=== PATIENT | male | born 1980 | race Two or more races ===

== ENCOUNTER 2019-09-05 11:20 | Inpatient (IN) | payer MEDICAID, OTHER, SELFPAY ==
[~2019-09-05] VITALS: Ht 167.6 cm; Wt 83.2 kg
[2019-09-05] MEDS ORDERED: SODIUM CHLORIDE 0.9% 1,000 ML IV ONE (11:34)
[2019-09-05 12:05] LABS: Basophils # (auto) 0 10 ^3/uL (0-0.2); Basophils % (auto) 0.2 % (0.0-2.0); Eosinophils # (auto) 0 10 ^3/uL (0-0.8); Lymphocytes # (auto) 0.7 10 ^3/uL (0.4-5.4); Lymphocytes % (auto) 8.3 % (10.0-50.0); Mean Corpuscular Hemoglobin 28.2 pg (28.0-32.0); Mean Corpuscular Hgb Conc. 33.3 g/dL (32.0-36.0); Mean Corpuscular Volume 84.8 fL (80.0-100.0); Monocytes # (auto) 0.4 10 ^3/uL (0-1.3); Monocytes % (auto) 4.4 % (0.0-12.0); Neutrophils # (auto) 7.3 10 ^3/uL (1.6-8.6); Neutrophils % (auto) 87.1 % (37.0-80.0); Platelet Count (auto) 219 10^3/uL (140-450); Red Blood Cells 4.25 10^6/uL (4.5-5.90); White Blood Cell 8.4 10^3/uL (4.4-10.8)
[2019-09-05 12:22] LABS: Alanine Aminotransferase 28 U/L (16-61); Albumin 2.1 g/dL (3.4-5.0); Anion Gap 10 (5-15); Calcium 7.1 mg/dL (8.5-10.1); Carbon Dioxide 19 mmol/L (21-32); Chloride 108 mmol/L (98-107); Magnesium 2.3 mg/dL (1.6-2.6); Potassium 3.8 mmol/L (3.5-5.1); Sodium 137 mmol/L (136-145)
[2019-09-05 12:28] LABS: Alkaline Phosphatase 204 U/L (45-117); Aspartate Aminotransferase 27 U/L (15-37); Bilirubin, Total 0.5 mg/dL (0.2-1.0); GFR African American 47 mL/min; GFR Non-African American 39 mL/min; Total Protein 6.4 g/dL (6.4-8.2)
[2019-09-05 12:30] LABS: Glucose 413 mg/dL (74-106)
[2019-09-05 12:32] LABS: Urine Bacteria FEW /hpf (None Seen); Urine Blood TRACE /uL (Negative); Urine Specific Gravity 1.016 (1.001-1.035); Urine WBC 3 /hpf (0 - 3)
[2019-09-05 13:18] LABS: BUN/Creatinine Ratio 8.5; Blood Urea Nitrogen 17 mg/dL (7-18)
[2019-09-05] MEDS ORDERED: ACETAMINOPHEN 500 MG TAB PO ONE (14:45)
[2019-09-05] MEDS ORDERED: AZITHROMYCIN 500MG/ 250ML 250 ML IV ONE (15:15)
[2019-09-05] MEDS ORDERED: cefTRIAXone 1GM/50ML D5W 50 ML IV ONE (15:15)
[2019-09-05] MEDS ORDERED: ACETAMINOPHEN 500 MG TAB PO PRN ×2 (17:45)
[2019-09-05] MEDS ORDERED: NITROGLYCERIN 0.4 MG SL TAB SL PRN (17:45)
[2019-09-05] MEDS ORDERED: MORPHINE SULF INJ 2 MG/ML SYRINGE 1ML IV PRN ×2 (17:45)
[2019-09-05] MEDS ORDERED: HYDROcodone-ACET 5/325MG TAB PO PRN (17:45)
[2019-09-05] MEDS ORDERED: DEXTROSE (50%) 50ML SYRG IV PRN (17:45)
[2019-09-05] MEDS ORDERED: ONDANSETRON HCL 4 MG/2 ML VIAL IV PRN (17:45)
[2019-09-05] MEDS ORDERED: FUROSEMIDE 40 MG/4 ML VIAL IV ONE (17:45)
[2019-09-05 19:14] VITALS: BP 156/85
[2019-09-05 20:15] VITALS: BP 159/91
[2019-09-05] MEDS ORDERED: ALBUTEROL SULFATE 90 MCG MDI IN ONE (21:23)
[2019-09-05] MEDS: ALBUTEROL SULF HFA 90MCG INH 200DOSE IN SCH (21:58)
[2019-09-05] MEDS: ACCU-CHEK COMFORT CURVE STRIP VI SCH (22:22)
[2019-09-05] MEDS: methylPREDNISolone SOD SUCC 40 MG/ML VL IV SCH (22:22)
[2019-09-05] MEDS: InsuLIN REG 1unit/0.01ml Soln (100units/ml) SC SCH (22:29)
[2019-09-06] VITALS: BP 143/80
[2019-09-06 04:00] VITALS: BP 143/82
[2019-09-06] MEDS: ACCU-CHEK COMFORT CURVE STRIP VI SCH ×5 (06:03→20:02)
[2019-09-06] MEDS: InsuLIN REG 1unit/0.01ml Soln (100units/ml) SC SCH ×2 (06:19→20:25)
[2019-09-06] MEDS: ALBUTEROL SULF HFA 90MCG INH 200DOSE IN SCH ×3 (06:25→21:31)
[2019-09-06] MEDS ORDERED: DEXTROSE (50%) 50ML SYRG IV PRN ×2 (08:45→12:15)
[2019-09-06] MEDS: FAMOTIDINE 20 MG TAB PO SCH (08:49)
[2019-09-06] MEDS: CHOLECALCIFEROL (VITD3) 1,000IU=25mCg TAB PO SCH (08:50)
[2019-09-06 09:00] VITALS: BP 151/84
[2019-09-06] MEDS: amLODIPine BESYLATE 5 MG TAB PO SCH (09:00)
[2019-09-06] MEDS: ZINC SULFATE 220mg CAP or TAB PO SCH (09:01)
[2019-09-06] MEDS: ASCORBIC ACID 1,000 MG TAB PO SCH (09:02)
[2019-09-06] MEDS: ENOXAPARIN SOD 40 MG/0.4 ML SYRINGE SC SCH (09:02)
[2019-09-06] MEDS: methylPREDNISolone SOD SUCC 40 MG/ML VL IV SCH ×2 (09:03→21:47)
[2019-09-06] MEDS: DOXYCYCLINE 100MG/250ML 250 ML IV SCH ×2 (09:54→20:11)
[2019-09-06] MEDS ORDERED: FUROSEMIDE 40 MG/4 ML VIAL IV SCH (10:00)
[2019-09-06] MEDS ORDERED: InsuLIN REG 1unit/0.01ml Soln (100units/ml) SC SCH ×2 (12:00→16:00)
[2019-09-06] MEDS ORDERED: InsuLIN REG 1unit/0.01ml Soln (100units/ml) IV ONE (12:15)
[2019-09-06 13:00] VITALS: BP 144/77
[2019-09-06] MEDS ORDERED: ACCU-CHEK COMFORT CURVE STRIP VI SCH (16:00)
[2019-09-06] MEDS ORDERED: INSULIN LANTUS (GLARGINE) 1 /0.01ml (100units/ml) SC ONE (16:30)
[2019-09-06 17:00] VITALS: BP 137/63
[2019-09-06 20:00] VITALS: BP 146/87
[2019-09-06] MEDS ORDERED: SODIUM CHLORIDE 0.9% 1,000 ML IV SCH (20:45)
[2019-09-07] VITALS (22 sets, daily range): BP systolic 117–157; BP diastolic 66–89
[2019-09-07] MEDS: ACCU-CHEK COMFORT CURVE STRIP VI SCH ×7 (00:11→23:50)
[2019-09-07] MEDS: InsuLIN REG 1unit/0.01ml Soln (100units/ml) SC SCH ×7 (00:15→23:22)
[2019-09-07 05:16] LABS: Basophils # (auto) 0 10 ^3/uL (0-0.2); Eosinophils # (auto) 0 10 ^3/uL (0-0.8); Hematocrit 40.1 % (41.0-53.0); Hemoglobin 13.6 g/dL (13.5-17.5); Lymphocytes # (auto) 0.9 10 ^3/uL (0.4-5.4); Lymphocytes % (auto) 6.4 % (10.0-50.0); Mean Corpuscular Hemoglobin 28.5 pg (28.0-32.0); Mean Corpuscular Hgb Conc. 33.8 g/dL (32.0-36.0); Mean Corpuscular Volume 84.3 fL (80.0-100.0); Monocytes # (auto) 0.7 10 ^3/uL (0-1.3); Monocytes % (auto) 4.8 % (0.0-12.0); Neutrophils # (auto) 13.1 10 ^3/uL (1.6-8.6); Neutrophils % (auto) 88.8 % (37.0-80.0); Nucleated Red Blood Cells % 0.1 %; Platelet Count (auto) 302 10^3/uL (140-450); Red Blood Cells 4.75 10^6/uL (4.5-5.90); Red Cell Distribution Width 15.1 % (11.8-14.3); White Blood Cell 14.8 10^3/uL (4.4-10.8)
[2019-09-07 05:33] LABS: BUN/Creatinine Ratio 18.6; Calcium 7.2 mg/dL (8.5-10.1)
[2019-09-07] MEDS: ALBUTEROL SULF HFA 90MCG INH 200DOSE IN SCH ×3 (06:00→22:57)
[2019-09-07] MEDS: DOXYCYCLINE 100MG/250ML 250 ML IV SCH (08:45)
[2019-09-07] MEDS ORDERED: INSULIN LANTUS (GLARGINE) 1 /0.01ml (100units/ml) SC SCH (10:00)
[2019-09-07] MEDS: methylPREDNISolone SOD SUCC 40 MG/ML VL IV SCH (10:07)
[2019-09-07] MEDS: FAMOTIDINE 20 MG TAB PO SCH (10:08)
[2019-09-07] MEDS: ASCORBIC ACID 1,000 MG TAB PO SCH (10:08)
[2019-09-07] MEDS: amLODIPine BESYLATE 5 MG TAB PO SCH (10:08)
[2019-09-07] MEDS: ZINC SULFATE 220mg CAP or TAB PO SCH (10:08)
[2019-09-07] MEDS: ENOXAPARIN SOD 40 MG/0.4 ML SYRINGE SC SCH (10:09)
[2019-09-07] MEDS: CHOLECALCIFEROL (VITD3) 1,000IU=25mCg TAB PO SCH (10:09)
[2019-09-07] MEDS ORDERED: ACTEMRA IV SCH (11:15)
[2019-09-07] MEDS ORDERED: ENOXAPARIN SOD 80 MG/0.8ML SYRINGE SC SCH (11:45)
[2019-09-07] MEDS: PIPERACILLIN-TAZOB 2.25GM 50 ML IV SCH ×3 (12:00→23:50)
[2019-09-07] MEDS ORDERED: methylPREDNISolone SOD SUCC 40 MG/ML VL IV ONE (12:00)
[2019-09-07] MEDS ORDERED: ACETAMINOPHEN 650 mg PER 20 mL UD PO ONE (12:00)
[2019-09-07] MEDS ORDERED: diphenhdrAMINE HCL 50 MG/1 ML VL IV ONE (12:00)
[2019-09-07] MEDS ORDERED: TOCILIZUMAB 400 MG in SODIUM CHL 0.9% 80 ML IV SCH (12:30)
[2019-09-07] MEDS ORDERED: TOCILIZUMAB 400 MG in SODIUM CHL 0.9% 80 ML IV ONE (13:15)
[2019-09-07] MEDS ORDERED: diphenhdrAMINE HCL 50 MG/1 ML VL ONE (13:23)
[2019-09-07 14:40] LABS: Alanine Aminotransferase 32 U/L (16-61); Aspartate Aminotransferase 30 U/L (15-37)
[2019-09-07 14:43] LABS: Alkaline Phosphatase 189 U/L (45-117)
[2019-09-07] MEDS ORDERED: DEXTROSE (50%) 50ML SYRG IV PRN (16:00)
[2019-09-07] MEDS ORDERED: REMDESIVIR 200 MG IV ONE (16:00)
[2019-09-07] MEDS ORDERED: SODIUM CHLORIDE IV ONE (16:00)
[2019-09-07] MEDS: SODIUM CHLORIDE 0.9% 1,000 ML IV SCH (17:47)
[2019-09-08] VITALS (77 sets, daily range): BP systolic 100–143; BP diastolic 65–92
[2019-09-08] MEDS ORDERED: guaiFENesin 200 MG/10 ML UD PO PRN (02:00)
[2019-09-08] MEDS: ACCU-CHEK COMFORT CURVE STRIP VI SCH ×6 (03:33→23:59)
[2019-09-08] MEDS: InsuLIN REG 1unit/0.01ml Soln (100units/ml) SC SCH ×6 (03:33→23:59)
[2019-09-08 04:22] LABS: Basophils # (auto) 0 10 ^3/uL (0-0.2); Basophils % (auto) 0.1 % (0.0-2.0); Eosinophils # (auto) 0 10 ^3/uL (0-0.8); Hematocrit 39.1 % (41.0-53.0); Hemoglobin 12.8 g/dL (13.5-17.5); Lymphocytes % (auto) 6.7 % (10.0-50.0); Mean Corpuscular Hemoglobin 27.7 pg (28.0-32.0); Mean Corpuscular Hgb Conc. 32.9 g/dL (32.0-36.0); Mean Corpuscular Volume 84.4 fL (80.0-100.0); Monocytes % (auto) 6.6 % (0.0-12.0); Neutrophils # (auto) 12.7 10 ^3/uL (1.6-8.6); Neutrophils % (auto) 86.6 % (37.0-80.0); Nucleated Red Blood Cells % 0.1 %; Platelet Count (auto) 353 10^3/uL (140-450); Red Blood Cells 4.63 10^6/uL (4.5-5.90); Red Cell Distribution Width 15.5 % (11.8-14.3); White Blood Cell 14.7 10^3/uL (4.4-10.8)
[2019-09-08 05:02] LABS: Potassium 3.8 mmol/L (3.5-5.1)
[2019-09-08 05:18] LABS: Albumin 1.7 g/dL (3.4-5.0); BUN/Creatinine Ratio 22.5; Bilirubin, Total 0.3 mg/dL (0.2-1.0); Calcium 6.9 mg/dL (8.5-10.1)
[2019-09-08] MEDS: PIPERACILLIN-TAZOB 2.25GM 50 ML IV SCH ×4 (05:34→19:36)
[2019-09-08] MEDS: ALBUTEROL SULF HFA 90MCG INH 200DOSE IN SCH ×3 (07:16→23:01)
[2019-09-08] MEDS ORDERED: diphenhdrAMINE HCL 50 MG/1 ML VL IV ONE (07:30)
[2019-09-08] MEDS ORDERED: ACETAMINOPHEN 650 mg PER 20 mL UD PO ONE (07:30)
[2019-09-08] MEDS ORDERED: methylPREDNISolone SOD SUCC 40 MG/ML VL IV ONE (07:30)
[2019-09-08] MEDS ORDERED: TOCILIZUMAB 400 MG in SODIUM CHL 0.9% 80 ML IV ONE (07:45)
[2019-09-08] MEDS: amLODIPine BESYLATE 5 MG TAB PO SCH (09:49)
[2019-09-08] MEDS: FAMOTIDINE 20 MG TAB PO SCH (09:50)
[2019-09-08] MEDS: ENOXAPARIN SOD 80 MG/0.8ML SYRINGE SC SCH (09:53)
[2019-09-08] MEDS ORDERED: INSULIN LANTUS (GLARGINE) 1 /0.01ml (100units/ml) SC SCH (10:00)
[2019-09-08] MEDS: SODIUM CHLORIDE 0.9% 1,000 ML IV SCH (11:00)
[2019-09-08] MEDS ORDERED: ASCORBIC ACID 500 MG TAB PO ONE (12:15)
[2019-09-08] MEDS ORDERED: ZINC SULFATE 220mg CAP or TAB PO ONE (12:15)
[2019-09-08] MEDS ORDERED: CHOLECALCIFEROL (VITD3) 1,000IU=25mCg TAB PO ONE (12:15)
[2019-09-08] MEDS: REMDESIVIR 100mg in NS 230ml DAILYx4DAYS (NO VENT) IV SCH (15:11)
[2019-09-08] MEDS: INSULIN LANTUS (GLARGINE) 1 /0.01ml (100units/ml) SC SCH (22:05)
[2019-09-09] VITALS (94 sets, daily range): BP systolic 127–160; BP diastolic 74–105
[2019-09-09] MEDS: InsuLIN REG 1unit/0.01ml Soln (100units/ml) SC SCH ×5 (03:53→23:51)
[2019-09-09] MEDS: ACCU-CHEK COMFORT CURVE STRIP VI SCH ×5 (03:56→23:48)
[2019-09-09 04:35] LABS: Basophils # (auto) 0 10 ^3/uL (0-0.2); Basophils % (auto) 0.1 % (0.0-2.0); Eosinophils # (auto) 0 10 ^3/uL (0-0.8); Hematocrit 40.9 % (41.0-53.0); Hemoglobin 13.4 g/dL (13.5-17.5); Lymphocytes # (auto) 1.5 10 ^3/uL (0.4-5.4); Lymphocytes % (auto) 11.7 % (10.0-50.0); Mean Corpuscular Hemoglobin 27.8 pg (28.0-32.0); Mean Corpuscular Hgb Conc. 32.9 g/dL (32.0-36.0); Mean Corpuscular Volume 84.7 fL (80.0-100.0); Monocytes # (auto) 1.4 10 ^3/uL (0-1.3); Monocytes % (auto) 10.6 % (0.0-12.0); Neutrophils # (auto) 10.2 10 ^3/uL (1.6-8.6); Neutrophils % (auto) 77.6 % (37.0-80.0); Nucleated Red Blood Cells % 0.1 %; Platelet Count (auto) 347 10^3/uL (140-450); Red Blood Cells 4.83 10^6/uL (4.5-5.90); Red Cell Distribution Width 14.8 % (11.8-14.3); White Blood Cell 13.2 10^3/uL (4.4-10.8)
[2019-09-09 04:51] LABS: Potassium 3.9 mmol/L (3.5-5.1)
[2019-09-09 04:54] LABS: BUN/Creatinine Ratio 24.6
[2019-09-09] MEDS: PIPERACILLIN-TAZOB 2.25GM 50 ML IV SCH ×4 (05:57→23:48)
[2019-09-09] MEDS: ALBUTEROL SULF HFA 90MCG INH 200DOSE IN SCH ×3 (06:00→22:00)
[2019-09-09] MEDS: SODIUM CHLORIDE 0.9% 1,000 ML IV SCH (06:38)
[2019-09-09] MEDS: CHOLECALCIFEROL (VITD3) 1,000IU=25mCg TAB PO SCH (10:00)
[2019-09-09] MEDS: ZINC SULFATE 220mg CAP or TAB PO SCH (10:00)
[2019-09-09] MEDS: amLODIPine BESYLATE 5 MG TAB PO SCH (10:00)
[2019-09-09] MEDS: ASCORBIC ACID 500 MG TAB PO SCH (10:00)
[2019-09-09] MEDS: ENOXAPARIN SOD 80 MG/0.8ML SYRINGE SC SCH (11:38)
[2019-09-09] MEDS ORDERED: FUROSEMIDE 40 MG/4 ML VIAL IV ONE (11:45)
[2019-09-09] MEDS: INSULIN LANTUS (GLARGINE) 1 /0.01ml (100units/ml) SC SCH ×2 (12:29→21:23)
[2019-09-09] MEDS ORDERED: METOCLOPRAMIDE HCL 5MG/ml INJ 2ml VIAL IV ONE (13:30)
[2019-09-09] MEDS: REMDESIVIR 100mg in NS 230ml DAILYx4DAYS (NO VENT) IV SCH ×2 (14:30→16:44)
[2019-09-09] MEDS ORDERED: PANTOPRAZOLE 40 MG TAB PO ONE (14:45)
[2019-09-09] MEDS ORDERED: DEXTROSE (50%) 50ML SYRG IV PRN (14:45)
[2019-09-09] MEDS ORDERED: ONDANSETRON HCL 4 MG/2 ML VIAL ONE (23:42)
[2019-09-10] VITALS (40 sets, daily range): BP systolic 125–161; BP diastolic 76–102
[2019-09-10 04:02] LABS: Hematocrit 46.6 % (41.0-53.0); Hemoglobin 15.3 g/dL (13.5-17.5); Mean Corpuscular Hgb Conc. 32.9 g/dL (32.0-36.0); Mean Corpuscular Volume 84.9 fL (80.0-100.0); Platelet Count (auto) 360 10^3/uL (140-450); Red Blood Cells 5.49 10^6/uL (4.5-5.90); White Blood Cell 6.9 10^3/uL (4.4-10.8)
[2019-09-10 04:17] LABS: Band Neutrophils % (manual) 0; Basophils % (manual) 0 (0.0-2.0); Blast Cells 0; Metamyelocytes % 0; Myelocytes % 0; Promyelocytes % 0; Reactive Lymphocytes 0
[2019-09-10 04:30] LABS: BUN/Creatinine Ratio 20.3; Calcium 7.1 mg/dL (8.5-10.1); Potassium 3.8 mmol/L (3.5-5.1)
[2019-09-10] MEDS: PIPERACILLIN-TAZOB 2.25GM 50 ML IV SCH ×3 (05:31→18:42)
[2019-09-10] MEDS: ACCU-CHEK COMFORT CURVE STRIP VI SCH ×4 (05:31→23:25)
[2019-09-10] MEDS: InsuLIN REG 1unit/0.01ml Soln (100units/ml) SC SCH ×4 (05:32→23:24)
[2019-09-10] MEDS: ALBUTEROL SULF HFA 90MCG INH 200DOSE IN SCH ×3 (06:15→22:00)
[2019-09-10 06:47] LABS: Eosinophils % (manual) 1 (0-7); Lymphocytes % (manual) 27 (10.0-50.0); Monocytes % (manual) 9 (0-12)
[2019-09-10] MEDS: amLODIPine BESYLATE 5 MG TAB PO SCH (09:42)
[2019-09-10] MEDS: PANTOPRAZOLE 40 MG TAB PO SCH (09:42)
[2019-09-10] MEDS: INSULIN LANTUS (GLARGINE) 1 /0.01ml (100units/ml) SC SCH ×2 (09:42→21:50)
[2019-09-10] MEDS: CHOLECALCIFEROL (VITD3) 1,000IU=25mCg TAB PO SCH (09:42)
[2019-09-10] MEDS: ENOXAPARIN SOD 80 MG/0.8ML SYRINGE SC SCH (09:42)
[2019-09-10] MEDS: ZINC SULFATE 220mg CAP or TAB PO SCH (09:42)
[2019-09-10] MEDS: ASCORBIC ACID 500 MG TAB PO SCH (09:42)
[2019-09-10] MEDS: REMDESIVIR 100mg in NS 230ml DAILYx4DAYS (NO VENT) IV SCH (14:06)
[2019-09-10] MEDS: hydrALAZINE HCL 20 MG/ML VL IV PRN (18:46)
[2019-09-10] MEDS: methylPREDNISolone SOD SUCC 40 MG/ML VL IV SCH (21:49)
[2019-09-11] VITALS (7 sets, daily range): BP systolic 128–162; BP diastolic 82–102
[2019-09-11 04:16] LABS: Potassium 4.1 mmol/L (3.5-5.1)
[2019-09-11] MEDS: InsuLIN REG 1unit/0.01ml Soln (100units/ml) SC SCH ×3 (05:03→17:40)
[2019-09-11] MEDS: ACCU-CHEK COMFORT CURVE STRIP VI SCH ×3 (05:05→17:21)
[2019-09-11] MEDS: PIPERACILLIN-TAZOB 2.25GM 50 ML IV SCH ×4 (06:00→17:21)
[2019-09-11] MEDS: ALBUTEROL SULF HFA 90MCG INH 200DOSE IN SCH ×3 (07:30→22:24)
[2019-09-11] MEDS: CHOLECALCIFEROL (VITD3) 1,000IU=25mCg TAB PO SCH (08:41)
[2019-09-11] MEDS: ASCORBIC ACID 500 MG TAB PO SCH (08:42)
[2019-09-11] MEDS: ENOXAPARIN SOD 80 MG/0.8ML SYRINGE SC SCH (08:42)
[2019-09-11] MEDS: amLODIPine BESYLATE 5 MG TAB PO SCH (08:43)
[2019-09-11] MEDS: methylPREDNISolone SOD SUCC 40 MG/ML VL IV SCH (08:43)
[2019-09-11] MEDS: PANTOPRAZOLE 40 MG TAB PO SCH (08:43)
[2019-09-11] MEDS: ZINC SULFATE 220mg CAP or TAB PO SCH (08:43)
[2019-09-11] MEDS: INSULIN LANTUS (GLARGINE) 1 /0.01ml (100units/ml) SC SCH ×2 (10:49→22:00)
[2019-09-11] MEDS: PROMETHAZINE HCL 25 MG/ML 1ML IV PRN (11:50)
[2019-09-11] MEDS: hydrALAZINE HCL 20 MG/ML VL IV PRN (11:50)
[2019-09-11] MEDS: REMDESIVIR 100mg in NS 230ml DAILYx4DAYS (NO VENT) IV SCH (14:13)
[2019-09-11] MEDS ORDERED: FUROSEMIDE 20 MG/2 ML VIAL IV ONE (14:15)
[2019-09-11] MEDS ORDERED: DOCUSATE SOD 100 MG CAP PO ONE ×2 (14:15→14:19)
[2019-09-11] MEDS ORDERED: FUROSEMIDE 20 MG/2 ML VIAL ONE (14:19)
[2019-09-11] MEDS: DOCUSATE SOD 100 MG CAP PO SCH (22:00)
[2019-09-12] MEDS: PIPERACILLIN-TAZOB 2.25GM 50 ML IV SCH ×2 (00:24→05:47)
[2019-09-12] MEDS: InsuLIN REG 1unit/0.01ml Soln (100units/ml) SC SCH ×5 (00:25→23:45)
[2019-09-12] MEDS: ACCU-CHEK COMFORT CURVE STRIP VI SCH ×5 (00:25→23:46)
[2019-09-12 02:05] VITALS: BP 143/85
[2019-09-12 04:00] VITALS: BP 136/87
[2019-09-12 04:38] LABS: Basophils # (auto) 0 10 ^3/uL (0-0.2); Basophils % (auto) 0.1 % (0.0-2.0); Eosinophils # (auto) 0.2 10 ^3/uL (0-0.8); Eosinophils % (auto) 2.9 % (0.0-7.0); Hematocrit 44.8 % (41.0-53.0); Lymphocytes # (auto) 1.6 10 ^3/uL (0.4-5.4); Lymphocytes % (auto) 25.5 % (10.0-50.0); Mean Corpuscular Hemoglobin 28.2 pg (28.0-32.0); Mean Corpuscular Hgb Conc. 33.6 g/dL (32.0-36.0); Monocytes # (auto) 0.6 10 ^3/uL (0-1.3); Monocytes % (auto) 10.1 % (0.0-12.0); Neutrophils # (auto) 3.9 10 ^3/uL (1.6-8.6); Neutrophils % (auto) 61.4 % (37.0-80.0); Nucleated Red Blood Cells % 0.2 %; Platelet Count (auto) 375 10^3/uL (140-450); Red Blood Cells 5.33 10^6/uL (4.5-5.90); Red Cell Distribution Width 14.6 % (11.8-14.3); White Blood Cell 6.4 10^3/uL (4.4-10.8)
[2019-09-12 05:00] LABS: Calcium 7.2 mg/dL (8.5-10.1); Potassium 3.4 mmol/L (3.5-5.1)
[2019-09-12 05:02] LABS: BUN/Creatinine Ratio 23.9
[2019-09-12] MEDS: ALBUTEROL SULF HFA 90MCG INH 200DOSE IN SCH ×3 (07:53→21:29)
[2019-09-12 08:00] VITALS: BP 141/75
[2019-09-12] MEDS: DOCUSATE SOD 100 MG CAP PO SCH ×2 (10:49→21:29)
[2019-09-12] MEDS: predniSONE 20 MG TAB PO SCH (10:49)
[2019-09-12] MEDS: ZINC SULFATE 220mg CAP or TAB PO SCH (10:49)
[2019-09-12] MEDS: amLODIPine BESYLATE 5 MG TAB PO SCH (10:49)
[2019-09-12] MEDS: INSULIN LANTUS (GLARGINE) 1 /0.01ml (100units/ml) SC SCH ×2 (10:50→21:30)
[2019-09-12] MEDS: CHOLECALCIFEROL (VITD3) 1,000IU=25mCg TAB PO SCH (10:50)
[2019-09-12] MEDS: ASCORBIC ACID 500 MG TAB PO SCH (10:50)
[2019-09-12] MEDS: PANTOPRAZOLE 40 MG TAB PO SCH (10:50)
[2019-09-12] MEDS: ENOXAPARIN SOD 80 MG/0.8ML SYRINGE SC SCH (10:50)
[2019-09-12 12:00] VITALS: BP 133/89
[2019-09-12] MEDS: PIPERACILLIN-TAZOB 3.375GM 100 ML IV SCH ×3 (14:30→23:30)
[2019-09-12 21:40] VITALS: BP 143/88
[2019-09-13] VITALS (7 sets, daily range): BP systolic 123–146; BP diastolic 87–101
[2019-09-13] MEDS: ALBUTEROL SULF HFA 90MCG INH 200DOSE IN SCH ×3 (05:46→21:32)
[2019-09-13] MEDS: FUROSEMIDE 20 MG/2 ML VIAL IV SCH ×2 (05:46→18:11)
[2019-09-13] MEDS: PIPERACILLIN-TAZOB 3.375GM 100 ML IV SCH ×4 (05:47→23:33)
[2019-09-13] MEDS: InsuLIN REG 1unit/0.01ml Soln (100units/ml) SC SCH ×4 (05:47→23:34)
[2019-09-13] MEDS: ACCU-CHEK COMFORT CURVE STRIP VI SCH ×4 (05:47→23:34)
[2019-09-13 06:06] LABS: Urine Bacteria FEW /hpf (None Seen); Urine Blood TRACE /uL (Negative); Urine Specific Gravity 1.021 (1.001-1.035); Urine WBC 2 /hpf (0 - 3)
[2019-09-13 09:49] LABS: Basophils # (auto) 0 10 ^3/uL (0-0.2); Basophils % (auto) 0.5 % (0.0-2.0); Eosinophils # (auto) 0.4 10 ^3/uL (0-0.8); Eosinophils % (auto) 6.8 % (0.0-7.0); Hematocrit 48.6 % (41.0-53.0); Lymphocytes # (auto) 1.3 10 ^3/uL (0.4-5.4); Mean Corpuscular Volume 84.9 fL (80.0-100.0); Monocytes # (auto) 0.6 10 ^3/uL (0-1.3); Monocytes % (auto) 10.2 % (0.0-12.0); Neutrophils # (auto) 3.5 10 ^3/uL (1.6-8.6); Neutrophils % (auto) 60.5 % (37.0-80.0); Platelet Count (auto) 373 10^3/uL (140-450); Red Blood Cells 5.73 10^6/uL (4.5-5.90); Red Cell Distribution Width 14.7 % (11.8-14.3); White Blood Cell 5.8 10^3/uL (4.4-10.8)
[2019-09-13 10:07] LABS: Albumin 2.3 g/dL (3.4-5.0); Calcium 7.6 mg/dL (8.5-10.1); Magnesium 2.2 mg/dL (1.6-2.6); Potassium 3.4 mmol/L (3.5-5.1)
[2019-09-13 10:13] LABS: BUN/Creatinine Ratio 17.4; Bilirubin, Total 0.9 mg/dL (0.2-1.0); CRP High Sensitivity 0.17 mg/dL (< 0.3)
[2019-09-13] MEDS: ZINC SULFATE 220mg CAP or TAB PO SCH (10:48)
[2019-09-13] MEDS: POTASSIUM CHL 20 Meq TABLET PO SCH (10:48)
[2019-09-13] MEDS: predniSONE 20 MG TAB PO SCH (10:48)
[2019-09-13] MEDS: DOCUSATE SOD 100 MG CAP PO SCH ×2 (10:48→21:33)
[2019-09-13] MEDS: amLODIPine BESYLATE 5 MG TAB PO SCH (10:49)
[2019-09-13] MEDS: ASCORBIC ACID 500 MG TAB PO SCH (10:49)
[2019-09-13] MEDS: PANTOPRAZOLE 40 MG TAB PO SCH (10:49)
[2019-09-13] MEDS: CHOLECALCIFEROL (VITD3) 1,000IU=25mCg TAB PO SCH (10:50)
[2019-09-13] MEDS: ENOXAPARIN SOD 80 MG/0.8ML SYRINGE SC SCH (10:50)
[2019-09-13] MEDS: PROMETHAZINE HCL 25 MG/ML 1ML IV PRN (10:55)
[2019-09-13] MEDS: INSULIN LANTUS (GLARGINE) 1 /0.01ml (100units/ml) SC SCH ×2 (10:58→21:53)
[2019-09-14 04:00] VITALS: BP 122/84
[2019-09-14 04:27] LABS: Basophils # (auto) 0 10 ^3/uL (0-0.2); Basophils % (auto) 0.5 % (0.0-2.0); Eosinophils # (auto) 0.3 10 ^3/uL (0-0.8); Eosinophils % (auto) 6.6 % (0.0-7.0); Hematocrit 43.1 % (41.0-53.0); Hemoglobin 14.6 g/dL (13.5-17.5); Lymphocytes # (auto) 1.6 10 ^3/uL (0.4-5.4); Lymphocytes % (auto) 31.8 % (10.0-50.0); Mean Corpuscular Hemoglobin 28.4 pg (28.0-32.0); Mean Corpuscular Hgb Conc. 33.9 g/dL (32.0-36.0); Mean Corpuscular Volume 83.9 fL (80.0-100.0); Monocytes # (auto) 0.7 10 ^3/uL (0-1.3); Monocytes % (auto) 14.3 % (0.0-12.0); Neutrophils # (auto) 2.3 10 ^3/uL (1.6-8.6); Neutrophils % (auto) 46.8 % (37.0-80.0); Nucleated Red Blood Cells % 0.1 %; Platelet Count (auto) 326 10^3/uL (140-450); Red Blood Cells 5.14 10^6/uL (4.5-5.90); Red Cell Distribution Width 14.8 % (11.8-14.3)
[2019-09-14 04:48] LABS: Albumin 2.2 g/dL (3.4-5.0); Calcium 7.3 mg/dL (8.5-10.1); Magnesium 2.4 mg/dL (1.6-2.6); Potassium 3.1 mmol/L (3.5-5.1)
[2019-09-14 04:53] LABS: BUN/Creatinine Ratio 16.7; Bilirubin, Total 0.8 mg/dL (0.2-1.0); Total Protein 5.6 g/dL (6.4-8.2)
[2019-09-14 04:56] LABS: INR 1.12 (0.9-1.15); Partial Thromboplastin Time 28.8 sec (23.64-32.05)
[2019-09-14] MEDS: ALBUTEROL SULF HFA 90MCG INH 200DOSE IN SCH ×3 (05:27→21:35)
[2019-09-14] MEDS: ACCU-CHEK COMFORT CURVE STRIP VI SCH ×3 (05:29→18:37)
[2019-09-14] MEDS: PIPERACILLIN-TAZOB 3.375GM 100 ML IV SCH ×2 (05:29→12:28)
[2019-09-14] MEDS: InsuLIN REG 1unit/0.01ml Soln (100units/ml) SC SCH ×3 (05:29→18:41)
[2019-09-14] MEDS: FUROSEMIDE 20 MG/2 ML VIAL IV SCH (05:29)
[2019-09-14] MEDS ORDERED: POTASSIUM CHL 20MEQ/100ML 100 ML IV ONE (05:50)
[2019-09-14 08:49] VITALS: BP 114/83
[2019-09-14] MEDS: predniSONE 20 MG TAB PO SCH (09:49)
[2019-09-14] MEDS: ZINC SULFATE 220mg CAP or TAB PO SCH (09:50)
[2019-09-14] MEDS: PANTOPRAZOLE 40 MG TAB PO SCH (09:50)
[2019-09-14] MEDS: CHOLECALCIFEROL (VITD3) 1,000IU=25mCg TAB PO SCH (09:50)
[2019-09-14] MEDS: POTASSIUM CHL 20 Meq TABLET PO SCH (09:50)
[2019-09-14] MEDS: DOCUSATE SOD 100 MG CAP PO SCH ×2 (09:50→21:34)
[2019-09-14] MEDS: ENOXAPARIN SOD 80 MG/0.8ML SYRINGE SC SCH (09:51)
[2019-09-14] MEDS: amLODIPine BESYLATE 5 MG TAB PO SCH (09:51)
[2019-09-14] MEDS: ASCORBIC ACID 500 MG TAB PO SCH (09:51)
[2019-09-14] MEDS: INSULIN LANTUS (GLARGINE) 1 /0.01ml (100units/ml) SC SCH (10:22)
[2019-09-14 12:26] VITALS: BP 138/92
[2019-09-14] MEDS: SODIUM CHLORIDE 0.9% 1,000 ML IV SCH (13:36)
[2019-09-14] MEDS ORDERED: INSULIN LANTUS (GLARGINE) 1 /0.01ml (100units/ml) SC SCH (18:00)
[2019-09-14 18:46] VITALS: BP 141/92
[2019-09-15] MEDS: ACCU-CHEK COMFORT CURVE STRIP VI SCH ×3 (00:07→12:25)
[2019-09-15] MEDS: InsuLIN REG 1unit/0.01ml Soln (100units/ml) SC SCH ×3 (00:08→12:36)
[2019-09-15 05:06] LABS: BUN/Creatinine Ratio 16.9; Calcium 7.4 mg/dL (8.5-10.1); Potassium 3.5 mmol/L (3.5-5.1)
[2019-09-15] MEDS: SODIUM CHLORIDE 0.9% 1,000 ML IV SCH (05:50)
[2019-09-15] MEDS: ALBUTEROL SULF HFA 90MCG INH 200DOSE IN SCH ×2 (05:51→14:30)
[2019-09-15 09:00] VITALS: BP 141/85
[2019-09-15] MEDS: ZINC SULFATE 220mg CAP or TAB PO SCH (09:25)
[2019-09-15] MEDS: POTASSIUM CHL 20 Meq TABLET PO SCH (09:26)
[2019-09-15] MEDS: DOCUSATE SOD 100 MG CAP PO SCH (09:26)
[2019-09-15] MEDS: ASCORBIC ACID 500 MG TAB PO SCH (09:27)
[2019-09-15] MEDS: CHOLECALCIFEROL (VITD3) 1,000IU=25mCg TAB PO SCH (09:27)
[2019-09-15] MEDS: PANTOPRAZOLE 40 MG TAB PO SCH (09:27)
[2019-09-15] MEDS ORDERED: predniSONE 20 MG TAB PO SCH (10:00)
[2019-09-15] MEDS: amLODIPine BESYLATE 5 MG TAB PO SCH (10:00)
[2019-09-15 12:42] VITALS: BP 148/86
[2019-09-15 12:55] VITALS: BP 148/86
[2019-09-15 13:18] VITALS: BP 141/85
== END 2019-09-15 15:30 | disposition home or self-care (01) | DRG 720 ==
LOC: ER 11:20 → TELE 11:21 → TELE-EAST 20:15 → ICU WEST 09-07 12:35 → DOU IN ICU 09-10 16:10 → TELE-EAST 09-12 14:43
PROVIDERS: ADMIT Nurse Practitioner Acute Care; ATTEND Internal Medicine
DX: A41.89 Other specified sepsis (principal); U07.1 COVID-19; E43 Unspecified severe protein-calorie malnutrition; J96.01 Acute respiratory failure with hypoxia; N17.0 Acute kidney failure with tubular necrosis; J12.89 Other viral pneumonia; D64.9 Anemia, unspecified; E66.9 Obesity, unspecified; N18.3 Chronic kidney disease, stage 3 (moderate); E87.6 Hypokalemia; I12.9 Hypertensive chronic kidney disease with stage 1 through stage 4 chronic kidney disease, or unspecified chronic kidney disease; E11.22 Type 2 diabetes mellitus with diabetic chronic kidney disease; E11.65 Type 2 diabetes mellitus with hyperglycemia; E11.21 Type 2 diabetes mellitus with diabetic nephropathy; Z79.899 Other long term (current) drug therapy; Z83.3 Family history of diabetes mellitus; Z68.32 Body mass index [BMI] 32.0-32.9, adult
CPT/HCPCS: 36415; 36600; 71045; 71046; 80048; 80053; 81001; 82728; 82805; 82962; 83036; 83605; 83615; 83735; 84075; 84100; 84443; 84450; 84460; 84484; 85007; 85025; 85027; 85379; 85610; 85730; 86141; 87040; 87070; 87081; 87804; 87880; 93005; 94640; 94762; 96361; 96365; 96368; 96375; G0378; J0696; J1815; J2405; J2543; J3480; J3490